=== PATIENT | male | born 1975 | race Hispanic/Latino ===

== ENCOUNTER 2024-08-29 19:27 | Emergency (ER) | payer BC, SELFPAY ==
[2024-08-29] MEDS ORDERED: KETOROLAC 30 MG/ML INJ ONE (21:05)
[2024-08-29] MEDS ORDERED: methocarbamoL 750 MG TAB ONE (21:05)
[2024-08-29] MEDS ORDERED: ONDANSETRON 4 MG/2 ML VIAL ONE (21:05)
[2024-08-29] MEDS ORDERED: HYDROCODONE/APAP 5/325 MG TAB ONE (21:06)
[2024-08-29] MEDS ORDERED: TDAP (DIPHTH,PERTUSS(ACELL),TET VAC) 0.5 ML VIAL IMVAC ONE (21:06)
[2024-08-29] MEDS ORDERED: CEFAZOLIN SODIUM 1 GM/VIAL ONE (21:06)
[2024-08-29] MEDS ORDERED: NA CHLORIDE 0.9% 100 ML ONE (21:06)
[2024-08-29] MEDS ORDERED: NA CHLORIDE 0.9% 1,000 ML ONE (21:07)
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
[2024-08-29 22:03] LABS: Absolute Lymphocytes (CBC) 2.1 K/uL (0.7-4.9); Absolute Monocytes 0.7 K/uL (0.1-1.3); Basophils % 0.4 % (0-1.3); Eosinophils % 0.4 % (0-4.4); Hematocrit 46.5 % (39.6-49.0); Hemoglobin 15.7 g/dL (13.6-17.9); MCHC 33.9 g/dL (32.0-36.0); MCV 94.5 fL (80-100); MPV 7.7 fL (7.6-11.3); Monocytes % 6.8 % (3.3-12.3); Neutrophils % 71.4 % (41.7-73.7); Nucleated Red Blood Cells % 0.1 % (0-0); Platelets 187 thou/uL (152-406); RBC Red Blood Cell Count 4.92 M/uL (4.33-5.43); Red Cell Distribution Width 13.4 % (12.1-15.2)
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
[2024-08-29 22:28] LABS: ALT/SGPT 27 U/L (16-61); AST/SGOT 13 U/L (15-37); Albumin/Globulin Ratio 1.3 (1.1-1.8); Alkaline Phosphatase 63 U/L (45-117); Anion Gap 5.5 mEq/L (5.0-15.0); BUN Blood Urea Nitrogen 19 mg/dL (7-18); Bicarbonate 28 mEq/L (21-32); Bilirubin Total 0.4 mg/dL (0.2-1.0); Glomerular Filtration Rate 70 ml/min (=/>90); Glucose Level 109 mg/dL (74-106); Potassium 3.5 mEq/L (3.5-5.1); Sodium Level 140 mEq/L (136-145)
[2024-08-29 22:29] LABS: Bilirubin Direct < 0.2 mg/dL (0-0.2); Bilirubin Indirect, Calculated 0.2 mg/dL (0.2-0.8)
[2024-08-29 23:55] VITALS: O2SAT 99
[2024-08-29 23:56] VITALS: BP 176/110; TEMP 98.1
== END 2024-08-29 23:35 | disposition short-term general hospital (02) ==
LOC: ER 19:27
DX: S01.112A Laceration without foreign body of left eyelid and periocular area, initial encounter (principal); V89.2XXA Person injured in unspecified motor-vehicle accident, traffic, initial encounter
CPT/HCPCS: 36415; 70450; 70486; 72125; 76377; 80048; 80076; 85025; 96361; 96365; 96372; 96375; 99285; J0690; J2405; J7030